=== PATIENT | male | born 1965 ===

== ENCOUNTER → 2024-12-29 10:24 | Outpatient (BNVA) | payer BC, SELFPAY | PROVIDERS: PCP Family Medicine; Visit Provider Specialist | DX: M17.0 Bilateral primary osteoarthritis of knee (principal); S83.206A Unspecified tear of unspecified meniscus, current injury, right knee, initial encounter; X58.XXXA Exposure to other specified factors, initial encounter | CPT/HCPCS: 73560; 73565 ==

== ENCOUNTER 2025-01-13 07:49 | Outpatient (CLI) | payer BC, SELFPAY ==
--- NOTE | 2025-01-13 07:56 | MR_ITS ---
WS: [id number] MRI RIGHT knee pre and post arthrogram. HISTORY: Positive Jessica's sign. COMPARISON: Radiograph 12/29/2024. Multiplanar sequences are performed pre and post arthrogram injection. Pre arthrogram: There is a small amount of fluid in the distal ACL. No full- thickness tear is identified. Majority of the fibers are intact. PCL is normal. Small amount of fluid along the MCL. Normal posterior lateral corner. Mild fraying and intrasubstance degeneration involving the posterior horn medial meniscus. No tear. Lateral meniscus normal. Mild proximal patellar tendinopathy. Distal quadriceps tendon is intact. No significant joint effusion. No Buenrostro's cyst. No marrow edema. Full-thickness 3.6 mm cortical defect along the weightbearing surface of lateral femoral condyle. There are smaller more superficial areas of chondromalacia along the weightbearing surface of the femoral condyle and adjacent tibial plateau. Superficial thinning and fraying of the cartilage in the medial compartment. Small marginal osteophytes in the medial and lateral compartments. Focal osteochondral defect measuring 5 mm in the posterior medial, nonweightbearing surface of the femoral condyle. Post arthrogram: Patellofemoral joint: Very small superficial chondral defects fill with contrast involving the patellar eminence. No full-thickness defects. Medial compartment: Mild surface irregularity of the meniscus but no definite tears are identified. 4 mm small defect along the mid weightbearing surface medial femoral condyle. There is contrast opacifying this defect. The exact location is difficult to determine. This may be a chondral defect. A small radial tear in the meniscus free edge may appear similar but this is only seen on the coronal imaging. Lateral compartment: Moderate areas of chondromalacia fill with contrast along the weightbearing surface of the lateral femoral condyle. MR/MR knee RT wo/w con [id number] IMPRESSION: 1. No ACL tear. 2. No definite meniscal tear identified. 3. Short segment signal abnormality fills with contrast involving weight-bearin g portion of the medial knee joint. This may be a small osteochondral defect. D ue to its location radial tear of the meniscus may appear similar but cannot co rrelate with similar findings on additional sequences. 4. Superficial cartilage defect in the patellar eminence. No underlying marrow edema. 5. 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 6. Mild proximal patellar tendinopathy. 7. No fractures or marrow edema.
--- NOTE | 2025-01-13 08:00 | IR_ITS ---
WS: [id number] RIGHT KNEE ARTHROGRAM (FLUOROSCOPY) RIGHT knee arthrogram was performed in fluoroscopy prior to MRI evaluation. HISTORY: positive medial mcmurrays COMPARISON: None. FLUOROSCOPY TIME: 0min [id number] # of spot films: 3 Procedure, risks and complications were explained to the patient. Complications include but not limited to bleeding, infection and contrast reaction. Current medications are reviewed. Skin is cleansed with ChloraPrep. Skin is anesthetized with 1% buffered lidocaine. 22-gauge needle is inserted into the lateral patellofemoral joint. Approximately 40 cc of gadolinium mixture injected without complication. Patient will proceed to MRI evaluation immediately. No complications were encountered. Patient is instructed to watch for post procedure infection or bleeding. Patient is also instructed to contact the radiology department with any concerns. IR/[place] [id number] IMPRESSION: Uncomplicated RIGHT knee joint injection prior to MRI arthrogram.
[2025-01-13] MEDS: gadobenate dimeglumine 20 mL vial 3 ML IV (09:22)
[2025-01-13] MEDS: iohexol 240 mg/mL 50 mL Btl 25 ML INTRA-ARTI (09:26)
== END 2025-01-13 07:50 | disposition home or self-care (01) ==
LOC: RAD 07:51
PROVIDERS: PCP Family Medicine; Visit Provider Specialist
DX: S83.241A Other tear of medial meniscus, current injury, right knee, initial encounter (principal); X58.XXXA Exposure to other specified factors, initial encounter
CPT/HCPCS: 27369; 73723; 77002; J9999